=== PATIENT | male | born 1975 | race Caucasian/White ===

== ENCOUNTER 2023-12-22 09:36 | Outpatient (CLI) | payer OTHER, SELFPAY ==
--- NOTE | 2024-02-16 14:32 | WPDHOMESLEEP ---
Sleep Study - Home Unattended Date of Study: 12/22/23 Ordering Provider: Farrukh Roberson DO Interpreting Provider: Alaina Lira MD Home Sleep Study Type: Watch PAT Height: 1.78 m Weight: 89.358 kg Body Mass Index: 28.3 Neck Circumference (inches): 14.5 [place]: 9 Reason for Sleep Study Difficulty turning his brain off at night, tossing and turning, waking during the night Sleep History Mp Su is a 48-year-old man with difficulty falling asleep and staying asleep. He wakes up during the night and feels excessively sleepy during the daytime. He has a difficult time waking in the morning. He rarely wakes at night with heartburn, belching or coughing.??He frequently snores, and frequently snores loudly enough that others complain. He constantly has trouble sleeping when he has a cold. He rarely wakes up gasping for breath during the night. He occasionally has breathing problems at night. He rarely sweats excessively at night. He never notices his heart pounding or beating irregularly during the night. He rarely falls asleep during the day. He never falls asleep involuntarily, never falls asleep while driving. He never experiences loss of muscle tone with strong emotion. He rarely has daytime difficulty at work due to excessive sleepiness, works as a field hand. He never feels paralyzed on waking or falling asleep. He occasionally experiences vivid dreams upon waking or falling asleep. He never feels afraid of going to sleep. He rarely has nightmares. He occasionally recalls his dreams. He constantly has thoughts racing through his mind. He rarely feels sad or depressed. He frequently feels anxiety. He occasionally notices parts of his body jerk. He frequently kicks during the night. He never feels crawling or aching feelings in his legs. He never feels leg pain at night. He rarely has morning jaw pain, frequently grinds his teeth at night. He rarely feels bothered by pain during the day, never is awakened by pain during the night. He rarely wakes up feeling stiff in the morning, and he rarely wakes feeling sore or achy. He rarely awakens with pain in his neck, spine, or joints. Normal bedtime is 10:00 p.m., falling asleep within a 1/2 hour, waking several times at night to go to the bathroom or just toss and turn. His normal wake time is 6:00 a.m.. On weekends, bedtime is later, between 11:30 p.m. and 12:30 a.m., wake time is between 8:00 a.m. and 9:00 a.m.. He estimates getting between 4 and 5 hours of sleep regularly. He never takes naps in the afternoon or evening. A short nap is not refreshing. He is usually drowsy for 3 hours after waking. He feels better in the evening compared to other times of day. Habits:??Tobacco: Never smoker Caffeine: 3-4 cups a day Alcohol: None Recreational substances: THC on weekends [facility] Past Medical History Medical History Male sexual dysfunction Situational anxiety Family History Family History Mother Hypertension Family history of diabetes mellitus in first degree relative Father Family history of coronary artery disease Hypertension Cerebrovascular accident Sibling Alcoholism Hypertension Social History Social History Smoking status: Unknown if ever smoked Tobacco type: e-cigarettes/vaping Second hand tobacco smoke exposure: No Alcohol intake: former Substance use: current Substance use type: marijuana Other substance usage details: THC through vape and edible Lack of Transportation: No Lack of Food: Never True Current Housing: I Have Housing Concerned About Future Housing: No Difficulty Paying Gas/Electric Bills: No Difficulty Paying for Meds: No Currently Unemployed: No Education: Trade/Vocational Certificate Difficulty
[2024-02-16 14:37] VITALS: BMI 28.3
== END 2024-02-14 07:30 | disposition home or self-care (01) ==
LOC: ANHCSM 09:36
PROVIDERS: PCP Internal Medicine; Visit Provider Internal Medicine
DX: G47.33 Obstructive sleep apnea (adult) (pediatric) (principal); G47.19 Other hypersomnia
CPT/HCPCS: 95800

== ENCOUNTER 2024-03-07 13:45 | Outpatient (CLI) | payer OTHER, SELFPAY ==
--- NOTE | 2024-03-12 12:52 | WPDHOLTEREM ---
Holter/Event Monitor Holter/Event Monitor Date of procedure: 03/07/24 Holter/Event Procedure: 48 Hr Holter Monitor Indications: Tachycardia Conclusion: 1. 48 hour holter monitor on 03/07/24. 2. Underlying rhythm is sinus rhythm. HR range 41-125 bpm; average HR 74 bpm. HR at 41 bpm was at 01:51. 3. There are 8 premature supraventricular complexes. No supraventricular tachycardia. 4. No premature ventricular complexes. No ventricular tachycardia. 5. No sinoatrial or atrioventricular blocks. No significant pauses greater than 2 seconds. 6. No symptoms available for correlation.
== END 2024-03-07 13:46 | disposition home or self-care (01) ==
PROVIDERS: PCP Internal Medicine; Visit Provider Internal Medicine
DX: R00.0 Tachycardia, unspecified (principal)
CPT/HCPCS: 93225; 93226